=== PATIENT | male | born 1960 | race Caucasian/White ===

== ENCOUNTER → 2016-11-19 | Outpatient (CLI) | payer BC ==
--- NOTE | 2016-11-21 15:30 | SLEEPHOME ---
DATE OF PROCEDURE: 11/19/2016 REFERRING PHYSICIAN: Ty Franco DO INTERPRETATION: Diagnostic home sleep testing was performed due to concern for the obstructive sleep apnea syndrome in this patient with a history of hypertension and snoring. For testing, a NOX-T3 respiratory monitoring device was used. Continuous record was made of pulse, oxygen saturation, airflow, chest and abdominal strain, and body position. 9 hours and 59 minutes of data were reviewed. Of these 5 hours and 24 minutes were marked as time in bed. During the interval marked time in bed, there were 237 respiratory events identified of 10 seconds in duration or greater for a respiratory event index of 43.8. The patient's events were primarily obstructive. Baseline pulse rate 62. Pulse rate ranged 49 to 93. Baseline saturation 93%. Lowest oxygen saturation 65%. Testing was performed in both the supine and nonsupine positions. IMPRESSION: Abnormal home sleep testing with repetitive respiratory events and oxygen desaturations to 65% with a respiratory event index of 43.8 is consistent with the obstructive sleep apnea syndrome. RECOMMENDATION: The patient should be referred for formal sleep evaluation and in laboratory pressure titration.
== END ==
LOC: M SLEEP HO 07:48
PROVIDERS: ATTEND Internal Medicine Pulmonary Disease
DX: R06.83 Snoring (principal); G47.9 Sleep disorder, unspecified